=== PATIENT | female | born 1985 | race Caucasian/White ===

== ENCOUNTER → 2016-10-30 | Outpatient (CLI) | payer BC ==
[~2016-10-30] MED LIST: FIORINAL 325 MG1 CAP PO; MOTRIN 800800 MG/TAB PO; PERCOCET 325 MG1 TA2 PO; PRENATAL1 TA7 PO; PROAIR HFA0.09 MG/AC IH
== END ==
LOC: OLC 13:32
DX: Z39.1 Encounter for care and examination of lactating mother (principal); Z71.89 Other specified counseling

== ENCOUNTER → 2016-11-06 | Outpatient (CLI) | payer BC | LOC: LAC 13:41 | DX: Z39.1 Encounter for care and examination of lactating mother (principal); Z71.89 Other specified counseling ==

== ENCOUNTER → 2018-07-26 | Outpatient (CLI) | payer BC | LOC: COL.RAD 09:27 | DX: R10.32 Left lower quadrant pain (principal) ==

== ENCOUNTER 2018-12-12 08:00 | Emergency (ER) | payer BC ==
[~2018-12-12] VITALS: Ht 170.2 cm; Wt 119.5 kg
[2018-12-12 08:05] VITALS: TEMP 97.7
[2018-12-12 08:34] LABS: BASO % 0.4 % (0.0-2.0); EOS # 0.2 (0.0-0.7); EOS % 2.4 % (0-4.0); GRAN # 5.7 (1.4-6.5); GRAN % 71.2 % (42.2-75.2); HEMOGLOBIN 12.3 g/dl (12.5-16.0); LYMPH # 1.7 (1.2-3.4); LYMPH % 20.8 % (20.0-51.0); MEAN CELL VOLUME 79 fl (80.0-100.0); MEAN CORPUSCULAR HEMOGLOBIN 26 pg (27.0-31.0); MEAN CORPUSCULAR HGB CONC 33 g/dl (33.0-37.0); MEAN PLATELET VOLUME 11.7 fl (7.4-10.4); MONO # 0.4 (0.1-0.6); PLATELET COUNT 238 K/mm3 (130-400); RED BLOOD COUNT 4.67 M/mm3 (4.10-5.30)
[2018-12-12 08:59] LABS: ALBUMIN 3.9 gm/dL (3.5-5.0); BILIRUBIN,TOTAL 0.3 mg/dL (0.0-1.0); C-REACTIVE PROTEIN 1.4 mg/dL (0.0-0.9); CALCIUM 8.9 mg/dL (8.4-10.2); CREATININE, serum 0.71 mg/dL (0.52-1.25); TOTAL PROTEIN 6.9 gm/dL (6.4-8.2)
[2018-12-12 09:54] LABS: COLLECTION METHOD CLEAN CATCH
[2018-12-12 10:01] LABS: MUCOUS Present /lpf; PH 7 (5-8); URINE APPEARANCE Clear; URINE BACTERIA Rare /hpf; URINE BILIRUBIN Negative (NEGATIVE); URINE BLOOD Negative (NEGATIVE); URINE COLOR Straw; URINE GLUCOSE Negative (NEGATIVE); URINE KETONE Negative (NEGATIVE); URINE LEUKOCYTE ESTERASE Negative (NEGATIVE); URINE NITRATE Negative (NEGATIVE); URINE PROTEIN(semi-quant) Negative (NEGATIVE); URINE RBC 0-2 /hpf; URINE UROBILINOGEN Negative (NEGATIVE)
[2018-12-12] MEDS ORDERED: NORCO 325 MG-7.1 TAB PO (11:08)
[2018-12-12 11:19] VITALS: BP 126/70; PULSE 86
== END 2018-12-12 11:20 | disposition home or self-care (01) ==
LOC: COL.ER 08:00
PROVIDERS: Emergency Medicine; Physician Assistant
DX: R10.32 Left lower quadrant pain (principal); F41.9 Anxiety disorder, unspecified
CPT/HCPCS: J1170; J1885; J2405; J7030

== ENCOUNTER 2019-11-30 12:41 | Outpatient (CLI) | payer BC ==
[~2019-11-30] VITALS: Ht 170.2 cm; Wt 116.4 kg
[2019-11-30] VITALS (7 sets, daily range): BP systolic 131–147; BP diastolic 69–89; PULSE 86–108; TEMP 97.6
[~2019-11-30 12:41] MED LIST changes: +NORCO 325 MG-7.1 TAB PO
[2019-11-30] MEDS ORDERED: PRENATAL (13:05)
[2019-11-30 14:30] LABS: BASO % 0.2 % (0.0-2.0); EOS # 0.1 (0.0-0.7); EOS % 0.7 % (0-4.0); GRAN % 78.8 % (42.2-75.2); HEMOGLOBIN 10.9 g/dl (12.5-16.0); LYMPH # 1.3 (1.2-3.4); LYMPH % 14.5 % (20.0-51.0); MEAN CELL VOLUME 83 fl (80.0-100.0); MEAN CORPUSCULAR HEMOGLOBIN 28 pg (27.0-31.0); MEAN CORPUSCULAR HGB CONC 33 g/dl (33.0-37.0); MEAN PLATELET VOLUME 10.5 fl (7.4-10.4); MONO # 0.5 (0.1-0.6); MONO % 5.3 % (1.7-9.3); PLATELET COUNT 182 K/mm3 (130-400); RED BLOOD COUNT 3.94 M/mm3 (4.10-5.30); REDCELL DISTRIBUTION WIDTH-CV 17.5 % (11.5-14.5)
[2019-11-30 14:34] LABS: HEMATOCRIT 32.6 % (37.0-47.0)
[2019-11-30 14:37] LABS: COLLECTION METHOD CLEAN CATCH
[2019-11-30 14:43] LABS: MUCOUS Present /lpf; PH 6 (5-8); URINE APPEARANCE Hazy; URINE BACTERIA Rare /hpf; URINE BILIRUBIN Negative (NEGATIVE); URINE BLOOD Negative (NEGATIVE); URINE COLOR Yellow; URINE GLUCOSE Negative (NEGATIVE); URINE KETONE 1+ (NEGATIVE); URINE LEUKOCYTE ESTERASE Negative (NEGATIVE); URINE NITRATE Negative (NEGATIVE); URINE PROTEIN(semi-quant) Negative (NEGATIVE); URINE RBC 0-2 /hpf; URINE UROBILINOGEN Negative (NEGATIVE); URINE WBC 0-2 /hpf
--- NOTE | 2019-11-30 15:40 | NUR ---
CALLED IN PROCARDIA XL TO ASHUTOSH WALSH
== END 2019-11-30 15:40 | disposition home or self-care (01) ==
LOC: LDRO 12:41
PROVIDERS: Obstetrics & Gynecology
DX: O62.9 Abnormality of forces of labor, unspecified (principal); Z3A.34 34 weeks gestation of pregnancy

== ENCOUNTER → 2022-12-16 | Outpatient (CLI) | payer BC ==
[~2022-12-16] MED LIST changes: +ALIGN; +CLARITIN 1010 MG/TAB PO; +LEVSIN0.125 M1 PO; +NATURAL IRON65 MG PO; +PHENERGAN 25 TA25 MG PO; +PRENATAL; +PROZAC40 MG PO; +XANAX .25M0.25 MG/TA PO
== END ==
LOC: COL.RAD 12:54
DX: K50.019 Crohn's disease of small intestine with unspecified complications (principal); K76.0 Fatty (change of) liver, not elsewhere classified; R16.2 Hepatomegaly with splenomegaly, not elsewhere classified; Z90.710 Acquired absence of both cervix and uterus
CPT/HCPCS: Q9967

== ENCOUNTER 2024-03-08 11:28 | Inpatient (IN) | payer BC ==
[~2024-03-08] VITALS: Ht 170.2 cm; Wt 89.5 kg
[2024-03-08] VITALS (12 sets, daily range): BP systolic 102–120; BP diastolic 69–92; PULSE 73–110; TEMP 97.7–98.7
--- NOTE | 2024-03-08 11:36 | NUR ---
Patient to room 329 from home. A&Ox4. Indpendent with ambulation. Denies pain and discomfort. Nurse oriented the patient to location, room and call light. PAtient NPO for a procedure. No further needs expressed. Call light within reach
[2024-03-08] MEDS ORDERED: TYLENOL 8 HR PO (11:49)
[2024-03-08] MEDS ORDERED: ZOFRAN ODT4 MG PO (11:49)
[2024-03-08] MEDS ORDERED: WEGOVY2.4 MG/0.7 SQ (11:50)
[2024-03-08] MEDS ORDERED: RINVOQ45 MG PO (11:52)
[2024-03-08] MEDS ORDERED: MILLIPRED DP5 MG PO (11:52)
[2024-03-08] MEDS ORDERED: VITAMIND3 5000 PO (11:53)
[2024-03-08] MEDS ORDERED: SYNTHROID0.125 MG/T PO (11:54)
[2024-03-08] MEDS ORDERED: LR 1,000 ML IV SCH ×3 (13:00→17:15)
[2024-03-08] MEDS ORDERED: Rocuronium 50 MG/5 ML Multi-Dose VIAL ONE (13:09)
[2024-03-08] MEDS ORDERED: Lidocaine PF 2% (20 MG/ML) 5 ML VIAL ONE ×2 (13:10→13:13)
[2024-03-08] MEDS ORDERED: Midazolam 2 MG/2 ML VIAL ONE (13:11)
[2024-03-08] MEDS ORDERED: fentaNYL 50 MCG/ML 2 ML VIAL ONE ×2 (13:11→16:45)
[2024-03-08] MEDS ORDERED: Succinylcholine PF 200 MG/10 ML SYRINGE IV ONE (13:11)
[2024-03-08] MEDS ORDERED: dexAMETHasone 10 MG/ML VIAL ONE (13:12)
[2024-03-08] MEDS ORDERED: Ondansetron 4 MG/2 ML VIAL ONE (13:12)
[2024-03-08] MEDS ORDERED: HYDROmorphone 0.5 MG/0.5 ML SYRINGE IV PRN ×2 (14:15→17:15)
[2024-03-08] MEDS ORDERED: Ondansetron 4 MG/2 ML VIAL IV PRN ×3 (14:15→17:15)
[2024-03-08] MEDS ORDERED: Topical Skin Adhesive 1 EACH (1 ML) TOP ONE ×2 (15:07→17:08)
[2024-03-08] MEDS ORDERED: HYDROmorphone 1 MG/1 ML SYRINGE [PACU/SDC ONLY] IV PRN (15:30)
[2024-03-08] MEDS ORDERED: fentaNYL 50 MCG/ML 1 ML SYRINGE/VIAL [PACU/SDC ONLY] IV PRN (15:30)
[2024-03-08] MEDS ORDERED: Meperidine 50 MG/ML 1 ML VIAL IV PRN (15:30)
[2024-03-08] MEDS ORDERED: Indocyanine Green 25 MG KIT IV ONE (15:30)
[2024-03-08] MEDS ORDERED: LR 1,000 ML IV ONE (15:41)
[2024-03-08] MEDS ORDERED: ALPRAZolam 0.25 MG TAB PO PRN (17:15)
[2024-03-08] MEDS ORDERED: Naloxone 0.4 MG/ML VIAL IV PRN (17:15)
[2024-03-08] MEDS ORDERED: oxyCODONE 5 MG TAB PO PRN (17:15)
[2024-03-08] MEDS ORDERED: Albuterol 0.083% Neb Soln 2.5 MG/3 ML UD IH PRN (17:15)
[2024-03-08] MEDS ORDERED: Ibuprofen 600 MG TAB PO PRN (17:15)
[2024-03-08] MEDS ORDERED: Acetaminophen 500 MG TAB PO SCH (18:15)
--- NOTE | 2024-03-08 18:55 | NUR ---
PATIENT RETURNRD FROM OR. AXO X4 ACCOMPANIE BY . VS ARE: 117/77BP, PULSE 75, TEMP 98.0 O2 SAT 96% ON 0.5L O2 NC. GLIDING PILOT INSTRUCTOR DISCLOSED THAT PATIENT HAD MAX DOSE ZOFRAN AND 2MG DILAUDID DURING RECOVERY. PATIENT RATES PAIN CURRENTLY AT 6/10. STATES NO NEEDS AT THIS TIME. POST OP VITALS AND CHECKS IN PLACE.
--- NOTE | 2024-03-08 21:00 | NUR ---
SHIFT ASSESSMENT FOLLOWING PATIENT RETURN FROM OR COMPLETE. PAIN CONTROL REMAINS A CONCERN. VS ARE WNL AND 5 LAP SITES TO ABDOMEN ARE CDI. SCHEDULED TYLENOL GIVEN. WILL CONTINUE TO MONITOR AND ADDRESS PAIN.
--- NOTE | 2024-03-08 21:00 | NUR ---
Patient ambultated approximately 500ft with good effort, however, pain is rated 8/10. 0,25 mg Dilaudid given.
--- NOTE | 2024-03-08 23:05 | NUR ---
ENTERED PATIENT ROOM. PATIENT CRYING AND HR ELEVATED 110BPM. STATES THAT WAS ONLY ALLOWED TO STAY FOR FEW MORE MINUTES AND LEFT. THIS CAUSES HER ANXIETY. PRN XANAX ADMINISTERED ALONG WITH THERAPEUTIC COMMUNICATION. PATIENT HR CURRENTLY AT 90 BPM.
[2024-03-09] VITALS (13 sets, daily range): BP systolic 99–115; BP diastolic 66–77; PULSE 67–94; TEMP 97.7–98.9
--- NOTE | 2024-03-09 03:12 | NUR ---
PATIENT HAS AMBULATED SURGICAL UNIT 4 TIMES IN EFFORT TO RELIEVE GAS ENTRAPEMENT. TOLERATING WATER, BUT BECAME NAUSEOUS WITH CHICKEN BROTH. CONTINUES TO RATE PAIN 8/10. 0.5MG IV DILAUDID GIVEN.
--- NOTE | 2024-03-09 05:59 | NUR ---
PAIN FINALLY UNDER CONTROL WITH 0.5MG AND ROXICODONE. PATIENT SLEEPING SOUNDLY. VS ARE WNL AND NO SIGNS OF VISIBLE DISTRESS.
[2024-03-09] MEDS ORDERED: Ketorolac 15 MG/ML VIAL IV PRN (07:00)
[2024-03-09] MEDS ORDERED: predniSONE 10 MG TAB PO SCH (08:00)
[2024-03-09] MEDS ORDERED: FLUoxetine 20 MG CAP PO SCH (09:00)
[2024-03-09] MEDS ORDERED: Loratadine 10 MG TAB PO SCH (09:00)
--- NOTE | 2024-03-09 10:08 | NUR ---
Social Work student met with patient to discuss discharge plan. Patient lives in [place] with Gary (ph# [phone]) and sees Dr. Saavedra for primary care. Patient uses [employer] for medications and has no difficulties affording. Patient has [facility]. She is independent with ADLS and uses a CPAP. Patient plans to return home when discharged. Patient completed a DPOA-HC and designated . baby formula worker and social work student signed as witnesses. Patient was provided original and copies. Copy was placed on chart. Discahrge plan: home
--- NOTE | 2024-03-09 10:24 | NUR ---
PT UP AMBULATING IN HALLS WITH . ERAS PROTOCOLS INPLACE. AM MEDS GIVEN ORDERS. CONTINUE WITH PLAN OF CARE.
--- NOTE | 2024-03-09 20:58 | NUR ---
PATIENT SITTING UP IN BED UPON ENTERING ROOM. EVENING MEDICATIONS ADMINISTERED. SHIFT ASSESSMENT COMPLETED. PATIENT WAS ADVANCED TO A FULL LIQUID DIET FOR DINNER AND TOLERATED WELL. REPORTS 6/10 PAIN WITH 8/10 CRAMPING OCCASSIONALLY. PRN MEDICATIONS GIVEN PER eMAR. x5 LAP SITE C/D/I WITH SOME BRUISING NOTED. PATIENT TAKING WALKS AROUND THE UNIT. REPORTS SHE HAS NOT PASSED ANY GAS YET. IS STAYING AT BEDSIDE OVERNIGHT. WILL CONTINUE TO MONITOR.
--- NOTE | 2024-03-09 21:11 | NUR ---
PATIENT CONTINUES TO COMPLAIN OF R SHOULDER GAS PAIN DESPITE ORAL PAIN MEDICATION. SHE STATES SHE CANNOT LAY DOWN OR REST BECAUSE OF THIS. THIS RN ADMINISTERED IV TORADOL PER eMAR. CONTINUING TO MONITOR.
[2024-03-10] VITALS (7 sets, daily range): BP systolic 108–120; BP diastolic 75–85; PULSE 73–88; TEMP 97.4–98.4
--- NOTE | 2024-03-10 00:30 | NUR ---
Received report from Kelley HOWARD.
--- NOTE | 2024-03-10 00:52 | NUR ---
Patient awake at this time, scheduled tylenol given, assessed at this time, with 5 lap sites, skin glued, edges well approximated, A/Ox4, denies further needs, call light and personal items within reach, will continue to monitor.
--- NOTE | 2024-03-10 01:15 | NUR ---
Patient ambulated the hallway with her at this time.
--- NOTE | 2024-03-10 05:56 | NUR ---
Patient called with c/o pain to abdomen, PS of 6.5/10, medicated with oxycodone, patient also reports that the toradol helped with her gas pain/shoulder pain.
--- NOTE | 2024-03-10 08:31 | NUR ---
PT UP INDEPENDENTLY IN ROOM AND HALLS, AMBULATING HOULRLY IN HALLS WITH . AM MEDS GIVEN ORDERED. CARE PLAN REVIEWED. INCISIONS TO ABD CDI WITH NO DRAINAGE NOTED.
--- NOTE | 2024-03-10 09:21 | NUR ---
Initial visit; Patient thanked [employer] for looking in on her and states she is doing well. [employer] offered God's blessings and the availability of Spiritual Care at our hospital.
[2024-03-10] MEDS ORDERED: MOTRIN 600600 MG/TAB PO (12:47)
[2024-03-10] MEDS ORDERED: ROXICODONE 55 MG/TAB PO (12:47)
--- NOTE | 2024-03-10 12:53 | NUR ---
PT CONTINUES TO AMBULATE IN HALLS. PT HAD BM THIS AM.
--- NOTE | 2024-03-10 15:18 | NUR ---
DISCHARGE INSTRUCTIONS REVIEWED WITH PT AND . PT LEFT UNIT AMBULATORY.
== END 2024-03-10 13:45 | disposition home or self-care (01) | DRG 330 ==
LOC: SURG 11:28
PROVIDERS: ADMIT Surgery
PROC: 8E0W4CZ Robotic Assisted Procedure of Trunk Region, Percutaneous Endoscopic Approach (ICD-10-PCS; 2024-03-08)
PROC: 0DTH4ZZ Resection of Cecum, Percutaneous Endoscopic Approach (ICD-10-PCS; principal; 2024-03-08 16:00)
DX: K50.90 Crohn's disease, unspecified, without complications (principal); K56.609 Unspecified intestinal obstruction, unspecified as to partial versus complete obstruction
CPT/HCPCS: A4314; A9284; J0690; J1100; J1170; J1650; J1885; J2250; J2405; J2704; J2795; J3010; J7120; J7512